=== PATIENT | male | born 1990 | race Caucasian/White ===

== ENCOUNTER 2016-05-11 05:36 | Emergency (ER) | payer BC ==
[~2016-05-11] VITALS: Ht 182.9 cm; Wt 131.4 kg
[2016-05-11 06:29] LABS: BASOPHIL COUNT 0.1 K/uL (0-0.1); EOSINOPHIL (%) 1.1 % (0-5); EOSINOPHIL COUNT 0.2 K/uL (0-0.3); HEMATOCRIT 40.9 % (38.0-50.0); IMMATURE GRANULOCYTE (%) 0.2 % (0.0-0.7); IMMATURE GRANULOCYTE COUNT 0.3 K/uL; LYMPHOCYTE COUNT 2.3 K/uL (1.0-2.8); MCH 26.9 PG (29.0-34.0); MCHC 33.5 G/DL (30.0-36.0); MCV 80.2 FL (86-99); MEAN PLAT.VOLUME 9.1 uM^3 (9.0-12.4); MONOCYTE (%) 10.3 % (3-12); MONOCYTE COUNT 1.5 K/uL (0-0.8); NEUTROPHIL (%) 72.6 % (45-76); NEUTROPHIL COUNT 10.8 K/uL (1.8-6.4); PLATELET COUNT 424 K/uL (156-360); RBC DIS.WIDTH-CV 13.4 % (11.8-14.6); WHITE BLOOD COUNT 14.9 K/uL (4.1-10.2)
[2016-05-11 06:41] LABS: CHLORIDE 104 mEq/L (99-109); SODIUM 135 mEq/L (136-147)
[2016-05-11 06:43] LABS: INFLUENZA A VIRAL ANTIGEN NEGATIVE; INFLUENZA B VIRAL ANTIGEN NEGATIVE
[2016-05-11 06:43] LABS: GLUCOSE 118 mg/dL (70-99)
[2016-05-11 06:45] LABS: ANION GAP 12 MEQ/L (2-14); TOTAL BILIRUBIN 0.4 mg/dL (0.0-1.0)
[2016-05-11 06:47] LABS: ALKALINE PHOSPHATASE 67 IU/L (3-129); GFR ESTIMATE (CALCULATED) > 59 mL/min/
[2016-05-11 06:48] LABS: UREA NITROGEN (BUN) 13 mg/dL (9-23)
[2016-05-11 06:53] LABS: TROP-I INTERPRETATION NEGATIVE; TROPONIN-I < 0.01 ng/mL (0.0-0.30)
[2016-05-11] MEDS ORDERED: ZITHROMAX250 MG PO (09:00)
[2016-05-11 09:22] VITALS: BP 112/69
== END 2016-05-11 09:26 | disposition home or self-care (01) ==
LOC: EME → EDBD 05:36 → EME 05:36
PROVIDERS: Emergency Medicine
DX: J18.9 Pneumonia, unspecified organism (principal); R50.81 Fever presenting with conditions classified elsewhere; R07.81 Pleurodynia
CPT/HCPCS: 71020; 80053; 83605; 84484; 85025; 87040; 87502; 93005; 99281; 99285; J0456; J0696; J1885; J7030; J7050